=== PATIENT | female | born 1990 | race Caucasian/White ===

== ENCOUNTER 2020-06-22 15:52 | Emergency (ER) | payer BC, OTHER ==
--- NOTE | 2020-06-22 16:40 | TELE ---
HPI Do you have fever,cough or shortness of breath?: No - General Reason For Visit: COVID History Source: Patient - History of Present Illness 06/22/20 16:38 30-year-old female denies past medical history is evaluated via telemedicine. Patient is requesting Covid testing given exposure to a known positive Covid person 2 days ago. Patient denies any symptoms such as cough, fever, chills, chest pain, shortness of breath, abdominal pain or any other complaint. PE: Speaking full sentences, does not appear in respiratory distress - Medical Decision Making 06/22/20 16:39 Ordered Covid testing Discharge Diagnosis at time of Disposition: Exposure to COVID-19 virus - Referrals Follow-up Referral(s): RACHID HURTADO [Primary Care Provider] - - Patient Instructions Discharge Instructions: [facility] - Coronavirus Instructions - Discharge Disposition: HOME Condition at time of Disposition: Stable
== END 2020-06-22 16:40 | disposition home or self-care (01) ==
LOC: JVIRT 15:52
DX: Z03.818 Encounter for observation for suspected exposure to other biological agents ruled out (principal)
CPT/HCPCS: C9803; Q3014-GT; U0003